=== PATIENT | female | born 1985 | race Caucasian/White ===

== ENCOUNTER 2018-12-27 02:22 | Emergency (ER) | payer BC ==
[2018-12-27] MEDS ORDERED: IBUPROFEN 600 MG TABLET PO ONE (02:41)
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
== END 2018-12-27 03:11 | disposition home or self-care (01) ==
LOC: ER 02:22
DX: S00.33XA Contusion of nose, initial encounter (principal); Y04.0XXA Assault by unarmed brawl or fight, initial encounter; F17.210 Nicotine dependence, cigarettes, uncomplicated
CPT/HCPCS: 99282